=== PATIENT | female | born 1975 | race African-American/Black ===

== ENCOUNTER 2019-11-30 19:00 | Emergency (ER) | payer MEDICAID ==
[~2019-11-30] VITALS: Ht 165.1 cm; Wt 78.0 kg
[2019-12-01] MEDS ORDERED: ACETAMINOPHEN 325MG TABLET PO ONE (00:45)
[2019-12-01 02:00] VITALS: BP 93/54
== END 2019-12-01 02:01 | disposition home or self-care (01) ==
LOC: ER 19:00
DX: J06.9 Acute upper respiratory infection, unspecified (principal); R05 Cough; Z88.6 Allergy status to analgesic agent
CPT/HCPCS: 87070; 87430; 99283

== ENCOUNTER 2023-07-21 18:11 | Emergency (ER) | payer OTHER ==
[~2023-07-21] VITALS: Ht 165.1 cm; Wt 68.0 kg
[2023-07-21 18:19] VITALS: BP 110/69; PULSE 69; RESP 20; TEMP 97.6; O2SAT 98
[2023-07-21] MEDS ORDERED: IBUP-2029 MT (19:42)
== END 2023-07-21 20:31 | disposition home or self-care (01) ==
LOC: ER 18:11
DX: S99.911A Unspecified injury of right ankle, initial encounter (principal); R60.0 Localized edema; X58.XXXA Exposure to other specified factors, initial encounter; Y93.89 Activity, other specified; Y92.89 Other specified places as the place of occurrence of the external cause; Y99.8 Other external cause status
CPT/HCPCS: 73590; 73610; 73630; 99284

== ENCOUNTER 2025-10-14 15:55 | Emergency (ER) | payer OTHER ==
[~2025-10-14] VITALS: Ht 264.2 cm; Wt 86.0 kg
[~2025-10-14 15:55] MED LIST: IBUP-1455 MT
[2025-10-14 16:02] VITALS: O2SAT 100
[2025-10-14 16:24] LABS: BASOPHILS % 0.4 % (0.0-2.0); EOSINOPHILS % 2.2 % (0.0-5.0); HEMATOCRIT. 35.3 % (36.0-48.0); HEMOGLOBIN. 11.8 g/dL (12.0-16.0); LYMPHOCYTES % 43.8 % (20.0-50.0); MEAN PLATELET VOLUME 8.3 fl (7.4-10.4); MONOCYTES % 4.0 % (2.0-8.0); NEUTROPHILS % 49.6 % (40.0-76.0); PLATELET 286 x1000/uL (130-400); RED BLOOD CELL COUNT 4.17 mill/uL (4.2-5.4); RED CELL DISTRIBUTION WIDTH 14.9 % (11.6-14.6)
[2025-10-14 16:42] LABS: CREATININE 0.8 mg/dL (0.6-1.0); UREA NITROGEN BLOOD < 5 mg/dL (9-23)
[2025-10-14 16:44] LABS: TROPONIN I HIGH SENSITIVITY < 4 ng/L (3.0-34)
[2025-10-14] MEDS ORDERED: MAG355OR21 MT (20:31)
[2025-10-14] MEDS ORDERED: PROT40 MT (20:31)
[2025-10-14 20:56] VITALS: BP 129/75; PULSE 66; RESP 16; TEMP 36.8; O2SAT 99
== END 2025-10-14 20:59 | disposition home or self-care (01) ==
LOC: ER 15:55
DX: K29.60 Other gastritis without bleeding (principal); R07.89 Other chest pain; Z79.899 Other long term (current) drug therapy
CPT/HCPCS: 36415; 71045; 80048; 84484; 85025; 93005; 99285